=== PATIENT | male | born 1995 | race Caucasian/White ===

== ENCOUNTER 2017-07-06 14:56 | Emergency (ER) | payer OTHER ==
--- NOTE | 2017-07-06 15:23 | EDM.PDOC ---
ED HPI GENERAL MEDICAL PROBLEM - General Chief Complaint: Neurological Problem Stated Complaint: CONCUSSION Time Seen by Provider: 07/06/17 15:21 Source of Information: Reports: Patient History Limitations: Reports: No Limitations - History of Present Illness INITIAL COMMENTS - FREE TEXT/NARRATIVE: History of present illness: [A 1-year-old male presenting status post a hockey injury approximately month ago. Patient indicates that he's had symptoms continue since the blow to his head and that there is some concern since this is his third concussion and symptoms of headache failure to be able to focus concentrate and difficulty sleeping continue. Discussed with patient this was consistent with a concussion syndrome but he indicated his staff trainer as well as his parents would feel better in addition to himself if he had a CT since he had not had one just rule out any further concerns indicated the patient we will do a CT of his head without contrast and have discussion of the results afterwards.] Review of systems: As per history of present illness and below otherwise all systems reviewed and negative. Past medical history: As per history of present illness and as reviewed below otherwise noncontributory. Surgical history: As per history of present illness and as reviewed below otherwise noncontributory. Social history: No reported history of drug or alcohol abuse. Family history: As per history of present illness and as reviewed below otherwise noncontributory. Physical exam: HEENT: Atraumatic, normocephalic, pupils reactive, negative for conjunctival pallor or scleral icterus, mucous membranes moist, throat clear, neck supple, nontender, trachea midline. Lungs: Clear to auscultation, breath sounds equal bilaterally, chest nontender. Heart: S1S2, regular, negative for clicks, rubs, or JVD. Abdomen: Soft, nondistended, nontender. Negative for masses or hepatosplenomegaly. Negative for costovertebral tenderness. Pelvis: Stable nontender. Genitourinary: Deferred. Rectal: Deferred. Extremities: Atraumatic, negative for cords or calf pain. Neurovascular unremarkable. Neuro: Awake, alert, oriented. Cranial nerves II through XII unremarkable. Cerebellum unremarkable. Motor and sensory unremarkable throughout. Exam nonfocal. Assessment is benign save the subjective complaint as noted in history of present illness. Diagnostics: [CT of the head] Therapeutics: [] Impression: [Concussion syndrome] Plan: [Amitriptyline refer to primary care] Definitive disposition and diagnosis as appropriate pending reevaluation and review of above. Bilateral sikh Pain Score (Numeric/FACES): 6 - Related Data Allergies Allergy/AdvReac Type Severity Reaction Status Date / Time peanut Allergy Anaphylactic Verified 07/06/17 15:12 Shock Home Meds: Home Meds Albuterol [Ventolin HFA] 8 gm INH ONETIME 07/06/17 [History] Amitriptyline [Elavil] 25 mg PO BEDTIME #30 tablet 07/06/17 [Rx] Budesonide/Formoterol Fumarate [Symbicort 160-4.5 Mcg Inhaler] 1 puff IH DAILY 07/06/17 [History] ED ROS GENERAL - Review of Systems Review Of Systems: See Below (See history of present illness) ED EXAM, GENERAL - Physical Exam Exam: See Below (See history of present illness) Course - Vital Signs Last Recorded V/S: Last Vital Signs Temp 36.4 C 07/06/17 15:14 Pulse 82 07/06/17 15:14 Resp 16 07/06/17 15:14 BP 140/99 H 07/06/17 15:14 Pulse Ox 96 07/06/17 15:14 - Orders/Labs/Meds Orders: Active Orders 24 hr Category Date Time Status Head wo Cont [CT] Stat Exams 07/06/17 15:21 Taken Departure - Departure Time of Disposition: 17:01 Disposition: Home, Self-Care 01 Condition: Good Clinical Impression: Postconcussion syndrome Clinical Impression: (Ruled Out): Concussion syndrome - Discharge Information Prescriptions: Amitriptyline [Elavil] 25 mg PO BEDTIME #30 tablet Referrals: Ronald Kan MD [Primary Care Provider] - Forms: ED Department Discharge Additional Instructions: The following information is given to patients seen in the emergency department who are being discharged to home. This information is to outline your options for follow-up care. We provide all patients seen in our emergency department with a follow-up referral. The need for follow-up, as well as the timing and circumstances, are variable depending upon the specifics of your emergency department visit. If you don't have a primary care physician on staff, we will provide you with a referral. We always advise you to contact your personal physician following an emergency department visit to inform them of the circumstance of the visit and for follow-up with them and/or the need for any referrals to a consulting specialist. The emergency department will also refer you to a specialist when appropriate. This referral assures that you have the opportunity for follow-up care with a specialist. All of these measure are taken in an effort to provide you with optimal care, which includes your follow-up. Under all circumstances we always encourage you to contact your private physician who remains a resource for coordinating your care. When calling for follow-up care, please make the office aware that this follow-up is from your recent emergency room visit. If for any reason you are refused follow-up, please contact the [facility] Emergency Department at and asked to speak to the emergency department charge nurse. You've been prescribed medication that is beneficial for postconcussion type syndrome chronic headache difficulty concentrating difficulty sleeping would benefit you to follow-up with her primary care provider to address these merit of issues but in the meantime been given amitriptyline low dose to be taken 1 at bedtime Follow-up with the PCP Return to ED as needed as discussed [facility] [address] [place] [id number] - My Orders Last 24 Hours: My Active Orders 07/06/17 15:21 Head wo Cont [CT] Stat - Assessment/Plan Last 24 Hours: My Active Orders 07/06/17 15:21 Head wo Cont [CT] Stat
--- NOTE | 2017-07-07 10:55 | CT ---
EXAM DATE: 07/06/17 PATIENT'S AGE: 21 Patient: TATIANA BANERJEE Facility: [place], [place] Site Site : 1994 Study: CT Head WO CONT [id number] 4:21:57 PM Ordering Physician: DEBRA CHAVEZ NP Final Report: INDICATION: CONCUSSION 6 WEEKS AGO, PRESSURE AT TEMPLES WITH LIGHTHEADEDNESS TECHNIQUE: CT Head without contrast. COMPARISON: None. FINDINGS: There is no sign of intracranial hemorrhage or mass effect. The winkler-white differentiation is preserved. No abnormal intra-axial or extra-axial fluid collection. No acute disease of the visualized paranasal sinuses and mastoid air cells. No fracture evident. No scalp hematoma/laceration. IMPRESSION: No acute intracranial process. Dictated by: Alejandro Fuller MD @ 07/06/2017 16:58:23 (Electronic Signature) Report Signed by Proxy. [facility]ITAL[facility]imanshu
== END 2017-07-06 17:15 | disposition home or self-care (01) ==
LOC: MW.ED 14:56
DX: F07.81 Postconcussional syndrome (principal); Z91.010 Allergy to peanuts
CPT/HCPCS: 70450; 70450-26; 99283-25; 99284